=== PATIENT | female | born 2000 ===

== ENCOUNTER 2020-11-03 05:55 | Day surgery (SDC) | payer OTHER ==
[2020-11-03] MEDS ORDERED: PERCOCET 5-3251 EACH PO (09:08)
== END 2020-11-03 11:25 | disposition home or self-care (01) ==
LOC: CIR.AMB 05:55 → EDBD 11:30
PROVIDERS: ATTEND Obstetrics & Gynecology Gynecology
DX: N80.1 Endometriosis of ovary (principal); Z20.822 Contact with and (suspected) exposure to COVID-19